=== PATIENT | female | born 1955 | race Caucasian/White ===

== ENCOUNTER 2018-01-06 10:15 | Emergency (ER) | payer OTHER ==
[~2018-01-06] VITALS: Ht 157.5 cm; Wt 92.1 kg
[2018-01-06] MEDS ORDERED: SIMVASTATIN20 MG (10:26)
[2018-01-06] MEDS ORDERED: EFFEXOR XR75 MG (10:26)
[2018-01-06] MEDS ORDERED: ATIVAN1 M1 (10:27)
== END 2018-01-06 14:25 | disposition home or self-care (01) ==
LOC: ER 10:15 → EDBD 10:16 → ER 10:16
DX: B34.9 Viral infection, unspecified (principal); K29.70 Gastritis, unspecified, without bleeding; J11.1 Influenza due to unidentified influenza virus with other respiratory manifestations